=== PATIENT | female | born 1960 | race Caucasian/White ===

== ENCOUNTER 2017-05-05 12:40 | Inpatient (IN) | payer MEDICARE ==
[~2017-05-05] VITALS: Ht 170.2 cm; Wt 56.7 kg
[2017-05-05] MEDS ORDERED: ESTRACE 0.0142.5 GM VG (13:30)
[2017-05-05] MEDS ORDERED: REQUIP0.5 MG PO (13:30)
[2017-05-05] MEDS ORDERED: ORAPRED ODT10 MG/TAB PO (13:31)
[2017-05-05] MEDS ORDERED: XELJANZ5 MG PO (13:32)
[2017-05-05] MEDS ORDERED: IBUPROFEN800 MG PO (13:33)
--- NOTE | 2017-05-05 13:33 | NUR ---
RECEIVED TO ROOM 2239 VIA STRETCHER FROM EMS. ALERT AND ORIENTED. WILL CALL DR RUSSELL FOR ORDERS.
[2017-05-05 13:43] VITALS: BP 105/52; BMI 19.6
[2017-05-05 14:03] LABS: HEMATOCRIT 35.9 % (36.0-48.0); HEMOGLOBIN 11.5 g/dL (12-16); MCH 27.2 pg (26.0-34.0); MCV 84.9 fL (80.0-100.0); MEAN PLATELET VOLUME 10.5 fL (7.4-10.4); PLATELET COUNT 68 10x3/uL (130-400); RBC 4.23 10x6/uL (4.00-5.40); RDW 14.1 % (11.5-14.5)
[2017-05-05 14:14] LABS: ALBUMIN 2.6 g/dL (3.4-5.0); ANION GAP 13.7 mmol/L (8-16); BILIRUBIN - TOTAL 0.58 mg/dL (0.2-1.3); CALCIUM 7.4 mg/dL (8.5-10.1); CARBON DIOXIDE 21.5 mmol/L (21.0-32.0); CREATININE - SERUM 0.9 mg/dL (0.6-1.3); POTASSIUM - SERUM 3.2 mmol/L (3.5-5.1)
[2017-05-05 14:23] LABS: THYROID STIMULATING HORMONE 0.92 uIU/mL (0.36-3.74)
[2017-05-05 14:32] LABS: LYMPHOCYTES 16 % (15-50); MONOCYTES 1 % (2-11); NEUTROPHILS 68 % (40-80); PLATELET ESTIMATE DECREASED
[2017-05-05 15:14] LABS: AMYLASE - SERUM 88 U/L (25-115); LIPASE 242 U/L (73-393)
[2017-05-05 16:10] VITALS: BP 92/57
[2017-05-05 20:00] VITALS: BP 95/59
[2017-05-06] VITALS: BP 99/55
[2017-05-06 03:36] LABS: APPEARANCE CLEAR (CLEAR); BILIRUBIN NEGATIVE (NEGATIVE); COLOR YELLOW (YELLOW); GLUCOSE NEGATIVE (NEGATIVE); KETONE NEGATIVE (NEGATIVE); LEUKOCYTE ESTERASE NEGATIVE (NEGATIVE); NITRITE NEGATIVE (NEGATIVE); PROTEIN NEGATIVE (NEGATIVE); SPECIFIC GRAVITY 1.015 (1.005-1.020); UROBILINOGEN NORMAL (NORMAL)
[2017-05-06 04:00] VITALS: BP 99/58
[2017-05-06 06:40] LABS: BASOPHILS 2.9 % (0-2); EOSINOPHILS 0 % (0-7); HEMATOCRIT 35.6 % (36.0-48.0); HEMOGLOBIN 11.7 g/dL (12-16); MCH 27.5 pg (26.0-34.0); MCHC 32.9 g/dL (31.0-37.0); MCV 83.6 fL (80.0-100.0); MEAN PLATELET VOLUME 11.3 fL (7.4-10.4); MONOCYTES 4.9 % (2-11); NEUTROPHILS 57.2 % (40-80); PLATELET COUNT 56 10x3/uL (130-400); RBC 4.26 10x6/uL (4.00-5.40)
[2017-05-06 06:57] LABS: ALBUMIN 2.3 g/dL (3.4-5.0); ALKALINE PHOSPHATASE 135 U/L (46-116); ALT (SGPT) 79 U/L (10-68); BILIRUBIN - TOTAL 0.67 mg/dL (0.2-1.3); CALC OSMOLALITY 274 mosm/kg (275-300); CALCIUM 7.7 mg/dL (8.5-10.1); CARBON DIOXIDE 20.7 mmol/L (21.0-32.0); CHLORIDE - SERUM 108 mmol/L (98-107); CREATININE - SERUM 0.8 mg/dL (0.6-1.3); GLUCOSE 137 mg/dL (74-106); PROTEIN - SERUM 5.1 g/dL (6.4-8.2); SODIUM 137 mmol/L (136-145); UREA NITROGEN 11 mg/dL (7-18); eGFR NON AFRICAN AMERICAN 78 mL/min (90-120)
[2017-05-06 06:58] LABS: POTASSIUM - SERUM 3.9 mmol/L (3.5-5.1)
--- NOTE | 2017-05-06 08:10 | NUR ---
PT AOX4 RESP EVEN AND NONLABORED PT DENIES NEEDS AT THIS TIME IV TO RIGHT WRIST PATENT AND INTACT AT THIS TIME SRX2 BED AT LOWEST SETTING CALL LIGHT WITHIN REACH WILL CONTINUE TO MONITOR
[2017-05-06 10:08] VITALS: BP 105/66
[2017-05-06 10:22] VITALS: Ht 170.2 cm; Wt 56.7 kg
[2017-05-06 13:13] VITALS: BP 102/64
[2017-05-06 17:37] VITALS: BP 103/63
[2017-05-06 20:00] VITALS: BP 100/56
[2017-05-07 00:35] VITALS: BP 96/59
[2017-05-07 04:00] VITALS: BP 104/64
[2017-05-07 06:00] LABS: BASOPHILS 1.9 % (0-2); EOSINOPHILS 0 % (0-7); HEMATOCRIT 34.9 % (36.0-48.0); HEMOGLOBIN 11.6 g/dL (12-16); IMMATURE GRANULOCYTES 1.1 % (0-5); LYMPHOCYTES 23.6 % (15-50); MCH 27.4 pg (26.0-34.0); MCHC 33.2 g/dL (31.0-37.0); MCV 82.3 fL (80.0-100.0); MEAN PLATELET VOLUME 11.1 fL (7.4-10.4); MONOCYTES 6.6 % (2-11); NEUTROPHILS 66.8 % (40-80); PLATELET COUNT 56 10x3/uL (130-400); RBC 4.24 10x6/uL (4.00-5.40); RDW 14.1 % (11.5-14.5); WBC 6.4 10x3/uL (4.8-10.8)
[2017-05-07 06:14] LABS: ALBUMIN 2.5 g/dL (3.4-5.0); ALKALINE PHOSPHATASE 235 U/L (46-116); ALT (SGPT) 88 U/L (10-68); BILIRUBIN - TOTAL 0.58 mg/dL (0.2-1.3); CALC OSMOLALITY 272 mosm/kg (275-300); CALCIUM 7.8 mg/dL (8.5-10.1); CHLORIDE - SERUM 105 mmol/L (98-107); CREATININE - SERUM 0.8 mg/dL (0.6-1.3); GLUCOSE 110 mg/dL (74-106); POTASSIUM - SERUM 3.7 mmol/L (3.5-5.1); PROTEIN - SERUM 5.2 g/dL (6.4-8.2); SODIUM 137 mmol/L (136-145); eGFR NON AFRICAN AMERICAN 78 mL/min (90-120)
[2017-05-07 06:15] LABS: UREA NITROGEN 8 mg/dL (7-18)
--- NOTE | 2017-05-07 07:00 | NUR ---
PT REC'D FROM [facility]. RESTING IN BED WITH EYES CLOSED. NO SIGNS OF DISTRESS. RESP EVEN AND UNLABORED. BED LOW, CALL LIGHT IN REACH, DENIES NEEDS. CPOC.
[2017-05-07 08:42] VITALS: BP 111/69
--- NOTE | 2017-05-07 09:48 | NUR ---
MORNING MEDS PASSED PER JAN. NO COMPLAINTS OF PAIN. AAOX4. LUNG SOUNDS CLEAR AND EQUAL BILAT. REGULAR HEART RATE AND RHYTHM. PRN MORPHINE OFFERED, BUT PT STATES SHE DOES NOT NEED IT RIGHT NOW. BED LOW, CALL LIGHT IN REACH, DENIES NEEDS. CPOC.
[2017-05-07 11:36] VITALS: BP 100/58
--- NOTE | 2017-05-07 12:11 | NUR ---
DR. ALVA AT BEDSIDE DISCUSSING POC. STATED IT WAS OKAY FOR HER TO BE TAKEN OFF OF ISOLATION AT THIS TIME. PRECAUTION SIGNS REMOVED AND RETURNED.
--- NOTE | 2017-05-07 12:48 | NUR ---
AWAKE AND ALERT.ORIENTED X3. NO C/O AT THIS TIME. REPORTS BEING TIRED THIS AM AND WANTS TO WAIT TO EAT FOR A BIT. WILL MONITOR. DENIES NEEDS.
[2017-05-07 17:30] VITALS: BP 111/62
--- NOTE | 2017-05-07 19:40 | NUR ---
RECIEVED SHIFT REPORT. PT IS LYING IN BED. ALERT AND ORIENTED AND ABLE TO VERBALIZE NEEDS. IV IS PATENT AND FLUIDS ARE RUNNING PER ORDER. PT IS AMBULATORY BUT WAS INSTRUCTED TO CALL FOR ANY ASSISTANCE NEEDED. PT DENIES ANY PAIN AT THIS TIME. PT REFUSES SCD'S. NO NEEDS ARE VERBALIZED AT THIS TIME. WILL CONTINUE TO MONITOR. SIDE RAILS ARE UP X 2. BED IS IN LOWEST POSITION. CALL LIGHT IS WITHIN REACH.
[2017-05-07 20:00] VITALS: BP 103/68
--- NOTE | 2017-05-07 20:53 | NUR ---
SHIFT ASSESSMENT COMPLETED. NIGHT MEDS GIVEN WITH NO PROBLEMS. NO NEEDS ARE VOICED. VISITOR IS AT THE BEDSIDE. WILL MONITOR. SIDE RAILS X 2. BED LOW. CALL LIGHT IN REACH.
[2017-05-08 04:00] VITALS: BP 94/59
[2017-05-08 05:22] LABS: BASOPHILS 0.7 % (0-2); EOSINOPHILS 0 % (0-7); HEMATOCRIT 35.3 % (36.0-48.0); HEMOGLOBIN 11.8 g/dL (12-16); IMMATURE GRANULOCYTES 6.1 % (0-5); LYMPHOCYTES 37.7 % (15-50); MCH 27.7 pg (26.0-34.0); MCHC 33.4 g/dL (31.0-37.0); MCV 82.9 fL (80.0-100.0); MEAN PLATELET VOLUME 11.9 fL (7.4-10.4); MONOCYTES 3.6 % (2-11); NEUTROPHILS 51.9 % (40-80); PLATELET COUNT 59 10x3/uL (130-400); RBC 4.26 10x6/uL (4.00-5.40); RDW 14.3 % (11.5-14.5); WBC 7.2 10x3/uL (4.8-10.8)
[2017-05-08 05:34] LABS: INR 0.95 (0.85-1.17); PROTIME 12.5 SECONDS (11.6-15.0)
[2017-05-08 05:35] LABS: APTT 31.8 SECONDS (22.8-39.4)
[2017-05-08 05:41] LABS: ALBUMIN 2.4 g/dL (3.4-5.0); ALKALINE PHOSPHATASE 238 U/L (46-116); BILIRUBIN - TOTAL 0.46 mg/dL (0.2-1.3); CALCIUM 7.8 mg/dL (8.5-10.1); CARBON DIOXIDE 25.3 mmol/L (21.0-32.0); CHLORIDE - SERUM 105 mmol/L (98-107); CREATININE - SERUM 0.7 mg/dL (0.6-1.3); GLUCOSE 110 mg/dL (74-106); POTASSIUM - SERUM 3.7 mmol/L (3.5-5.1); PROTEIN - SERUM 5.2 g/dL (6.4-8.2); SODIUM 138 mmol/L (136-145); eGFR NON AFRICAN AMERICAN > 90 mL/min (90-120)
[2017-05-08 05:42] LABS: ALT (SGPT) 122 U/L (10-68); CALC OSMOLALITY 275 mosm/kg (275-300); UREA NITROGEN 11 mg/dL (7-18)
--- NOTE | 2017-05-08 07:00 | NUR ---
PT REC'D FROM [facility]. RESTING IN BED WATCHING TV. AAXO4. NO COMPLAINTS OF PAIN. PIV TO R WRIST FREE OF REDNESS AND SWELLING. PT STATES, "I'M FEELING MUCH BETTER TODAY!" BED LOW, CALL LIGHT IN REACH, DENIES NEEDS. CPOC.
[2017-05-08 07:10] VITALS: BP 92/57
--- NOTE | 2017-05-08 11:00 | NUR ---
IV DISCONNECTED AT THIS TIME SO THAT PT CAN SHOWER.
[2017-05-08 12:04] VITALS: BP 86/55
--- NOTE | 2017-05-08 14:07 | NUR ---
DR. RUSSELL ON PHONE. UPDATE PROVIDED. PT UP AMBULATING THROUGH [facility]ALL[facility].
--- NOTE | 2017-05-08 15:20 | NUR ---
IV TO R WRIST RED, WARM, AND SWOLLEN. DC'D WITH CATHETER INTACT. X2 ATTEMPTS WITH 20GUAGE IV CATH. BOTH UNSUCCESSFUL. WILL HAVE SOMEONE ELSE ATTEMPT.
[2017-05-08 15:54] VITALS: BP 101/60
--- NOTE | 2017-05-08 18:42 | NUR ---
PT SEEN FOR [employer] HELPER NOTE. NO COMPLAINTS AT PRESENT. STATES FEELS ALITTLE BETTER TODAY. CALL LIGHT IN REACH
--- NOTE | 2017-05-08 19:35 | NUR ---
RECIEVED SHIFT REPORT. PT IS LYING IN BED. ALERT AND ORIENTED AND ABLE TO VERBALIZE NEEDS. IV IS PATENT AND FLUIDS ARE RUNNING PER ORDER. PT IS AMBULATORY BUT WAS INSTRUCTED TO CALL FOR ANY ASSISTANCE NEEDED. PT REFUSES SCD'S. PT DENIES ANY PAIN AT THIS TIME. NO NEEDS ARE VERBALIZED AT THIS TIME. WILL CONTINUE TO MONITOR. SIDE RAILS ARE UP X 2. BED IS IN LOWEST POSITION. CALL LIGHT IS WITHIN REACH.
[2017-05-08 20:00] VITALS: BP 95/56
--- NOTE | 2017-05-08 20:54 | NUR ---
SHIFT ASSESSMENT COMPLETED. NIGHT MEDS GIVEN WITH NO PROBLEMS. NO NEEDS ARE VOICED. WILL MONITOR. SIDE RAILS X 2. BED LOW. CALL LIGHT IN REACH.
[2017-05-09 06:50] LABS: BASOPHILS 0.6 % (0-2); EOSINOPHILS 0.1 % (0-7); HEMATOCRIT 36.4 % (36.0-48.0); HEMOGLOBIN 11.8 g/dL (12-16); IMMATURE GRANULOCYTES 1.3 % (0-5); LYMPHOCYTES 42.3 % (15-50); MCH 27.1 pg (26.0-34.0); MCHC 32.4 g/dL (31.0-37.0); MCV 83.5 fL (80.0-100.0); MEAN PLATELET VOLUME 11.8 fL (7.4-10.4); NEUTROPHILS 44.7 % (40-80); RBC 4.36 10x6/uL (4.00-5.40); RDW 14.7 % (11.5-14.5); WBC 6.9 10x3/uL (4.8-10.8)
[2017-05-09 06:53] LABS: PLATELET COUNT 72 10x3/uL (130-400)
--- NOTE | 2017-05-09 07:00 | NUR ---
PT REC'D FROM [facility]. RESTING IN BED WATCHING TV. AAOX4. NO COMPLAINTS OF PAIN. PIV TO L WRIST FREE OF REDNESS AND SWELLING. LABS REVIEWED WITH PT. BED LOW, CALL LIGHT IN REACH, DENIES NEEDS. CPOC.
[2017-05-09 07:09] LABS: ALBUMIN 2.4 g/dL (3.4-5.0); ALKALINE PHOSPHATASE 236 U/L (46-116); CALC OSMOLALITY 276 mosm/kg (275-300); CALCIUM 7.7 mg/dL (8.5-10.1); CARBON DIOXIDE 25.6 mmol/L (21.0-32.0); CHLORIDE - SERUM 106 mmol/L (98-107); CREATININE - SERUM 0.8 mg/dL (0.6-1.3); GLUCOSE 90 mg/dL (74-106); POTASSIUM - SERUM 3.8 mmol/L (3.5-5.1); PROTEIN - SERUM 5.4 g/dL (6.4-8.2); SODIUM 139 mmol/L (136-145); UREA NITROGEN 10 mg/dL (7-18); eGFR NON AFRICAN AMERICAN 78 mL/min (90-120)
[2017-05-09 07:10] LABS: ALT (SGPT) 201 U/L (10-68)
[2017-05-09 08:21] VITALS: BP 106/67
--- NOTE | 2017-05-09 09:55 | NUR ---
MORNING MEDS PASSED AT THIS TIME. NO COMPLAINTS. ASKING ABOUT DC. STATED THAT ONCE DR. RIVERS ROUNDED WE WOULD KNOW FOR SURE. NO QUESTIONS OR CONCERNS AT THIS TIME. BED LOW, CALL LIGHT IN REACH, DENIES NEEDS. CPOC.
--- NOTE | 2017-05-09 09:56 | NUR ---
Patient Name: EMILY GONZALEZ Admission Status: Elective Accout number: [id number] Admission Date: 05-05-2017 : 1960 Admission Diagnosis: Attending: VICTORIA Current LOS: 4 Anticipated DC Date: 05-11-2017 Planned Disposition: Home Primary Insurance: [facility] Discharge Planning Comments: CM MET WITH PATIENT REGARDING D/C NEEDS AND PLANS. PATIENT STATED SHE LIVES WITH HER SPOUSE (LALIT) AND HE WILL DRIVE HER HOME AT DISCHARGE. PATIENT HAS 5 STEPS W/RAILS TO ENTER HOME AND HAS A STAIRCASE W/RAILS IN THE HOME WHICH SHE DOES NOT HAVE TO USE. PATIENT IS INDEPENDENT WITH HER CARE AND HAS NO DME AT HOME. PATIENTS PCP IS DR. RUSSELL AND USES [facility] [address] FOR HER PHARMACY. PATIENT DOES NOT WANT HOME HEALTH AT DISCHARGE. CM WILL CONTINUE TO FOLLOW PATIENT WITH D/C NEEDS AND PLANS. PCP DR. DREW HIGHTOWER ON [address]- [phone] LALIT (SPOUSE) [phone] Academic Affairs Director: Kaylee Ayers Is the patient Alert and Oriented? Yes 0 * How many steps to enter\exit or inside your home? 5 STEPS 0 * PCP DR. RUSSELL 0 * [facility] [address] [facility] * Preadmission Environment Home with Family 0 * ADLs Independent 0 * Equipment None 0 * List name and contact numbers for known caregivers / representatives who currently or will assist patient after discharge: LALIT (SPOUSE) [phone] 0 * Community resources currently utilized None 0 * Additional services required to return to the preadmission environment? Yes 0 * Can the patient safely return to the preadmission environment? Yes 0 * Has this patient been hospitalized within the prior 30 days at any hospital? No 0 Grand Total: 0
--- NOTE | 2017-05-09 11:26 | NUR ---
SHIRT CLEANER NOTE-NO COMPLAINTS AT PRESENT. NO FEVER X 24 HOURS AND WBC CONTINUE TO REMAIN STABLE. PROCALAMINE INFUSING ALONG WITH IV FLUIDS. WANTS TO GO HOME SOON. CALL LIGHT IN PLACE
[2017-05-09 13:01] VITALS: BP 104/74
[2017-05-09] MEDS ORDERED: FLUTICASONE PRO16 GM NASAL (13:41)
[2017-05-09] MEDS ORDERED: FLORAJEN3 CAPS460 MG PO (13:42)
[2017-05-09] MEDS ORDERED: DOXYCYCLINE HY100 M2 PO (13:44)
--- NOTE | 2017-05-09 13:46 | NUR ---
CM REASSESSMENT NOTE: PATIENT IS DISCHARGING HOME TODAY-DAUGHTER IS DRIVING HER. PATIENT HAD NO NEEDS FOR DISCHARGE AND REFUSED HOME HEALTH.
--- NOTE | 2017-05-09 14:32 | NUR ---
DC INSTRUCTIONS DISCUSSED WITH PT AT THIS TIME. NO QUESTIONS OR CONCERNS VOICED. IV TO L WRIST DC'D WITH CATHETER INTACT. PRESSURE AND DRESSING APPLIED. ESCORTED OUT VIA WC.
--- NOTE | 2017-05-09 14:34 | NUR ---
PT REC'D FROM [facility]. RESTING IN BED WATCHING TV. AAOX4. NO COMPLAINTS OF PAIN. PIV TO L WRIST FREE OF REDNESS AND SWELLING. BED LOW, CALL LIGHT IN REACH, DENIES NEEDS. CPOC.
[2017-05-11 14:27] LABS: EHRLICHIA CHAFF IGG Negative (Neg:<1:64); EHRLICHIA CHAFF IGM Negative (Neg:<1:20); HGE IGG TITER Negative (Neg:<1:64); HGE IGM TITER Negative (Neg:<1:20)
[2017-05-11 21:08] LABS: RMSF IGM 0.28 index (0.00-0.89)
== END 2017-05-09 14:39 | disposition home or self-care (01) | DRG 813 ==
LOC: D.MS 12:40
PROVIDERS: Family Medicine Adult Medicine; Internal Medicine Hematology & Oncology; Student in an Organized Health Care Education/Training Program; ADMIT Family Medicine
DX: D69.6 Thrombocytopenia, unspecified (principal); A77.40 Ehrlichiosis, unspecified; D70.9 Neutropenia, unspecified; R50.81 Fever presenting with conditions classified elsewhere; M06.9 Rheumatoid arthritis, unspecified; N26.1 Atrophy of kidney (terminal); G25.81 Restless legs syndrome; R09.82 Postnasal drip

== ENCOUNTER 2017-09-01 09:00 | Outpatient (CLI) | payer MEDICARE ==
[2017-05-06 10:22] VITALS: BMI 19.5
[~2017-09-01 09:00] MED LIST: DOXYCYCLINE HY100 M2 PO; ESTRACE 0.0142.5 GM VG; FLORAJEN3 CAPS460 MG PO; FLUTICASONE PRO16 GM NASAL; IBUPROFEN800 MG PO; ORAPRED ODT10 MG/TAB PO; REQUIP0.5 MG PO; XELJANZ5 MG PO
== END 2017-09-01 23:59 | disposition home or self-care (01) ==
LOC: D.MAMMO 09:00
DX: Z12.31 Encounter for screening mammogram for malignant neoplasm of breast (principal)

== ENCOUNTER 2018-12-31 08:00 | Outpatient (CLI) | payer MEDICARE ==
[2017-05-06 10:22] VITALS: BMI 19.5
== END 2018-12-31 09:00 | disposition home or self-care (01) ==
LOC: D.MAMMO 08:00
DX: R92.8 Other abnormal and inconclusive findings on diagnostic imaging of breast (principal)

== ENCOUNTER 2020-03-22 10:40 | Emergency (ER) | payer MEDICARE ==
[~2020-03-22] VITALS: Ht 170.2 cm; Wt 50.0 kg
[2020-03-22 10:51] VITALS: Ht 170.2 cm; Wt 50.0 kg
[2020-03-22 11:45] LABS: BASOPHILS 0.2 % (0-2); HEMATOCRIT 38.3 % (36.0-48.0); HEMOGLOBIN 12.2 g/dL (12-16); IMMATURE GRANULOCYTES 0.2 % (0-5); LYMPHOCYTES 24.7 % (15-50); MCH 29.4 pg (26.0-34.0); MCHC 31.9 g/dL (31.0-37.0); MCV 92.3 fL (80.0-100.0); MEAN PLATELET VOLUME 9.1 fL (7.4-10.4); MONOCYTES 13.5 % (2-11); NEUTROPHILS 60.4 % (40-80); RBC 4.15 10x6/uL (4.00-5.40); RDW 15.4 % (11.5-14.5); WBC 5.9 10x3/uL (4.8-10.8)
[2020-03-22 11:49] LABS: PLATELET COUNT 272 10x3/uL (130-400)
[2020-03-22 11:58] LABS: CALC OSMOLALITY 279 mosm/kg (275-300); CALCIUM 8.6 mg/dL (8.5-10.1); CARBON DIOXIDE 28.5 mmol/L (21.0-32.0); CHLORIDE - SERUM 104 mmol/L (98-107); CREATININE - SERUM 0.8 mg/dL (0.6-1.3); GLUCOSE 83 mg/dL (74-106); POTASSIUM - SERUM 3.8 mmol/L (3.5-5.1); SODIUM 140 mmol/L (136-145); UREA NITROGEN 18 mg/dL (7-18); eGFR NON AFRICAN AMERICAN 77 mL/min (90-120)
[2020-03-22 12:04] LABS: ALBUMIN 3.6 g/dL (3.4-5.0); ALKALINE PHOSPHATASE 67 U/L (30-120); ALT (SGPT) 21 U/L (10-68); BILIRUBIN - TOTAL 0.41 mg/dL (0.2-1.3); PROTEIN - SERUM 6.4 g/dL (6.4-8.2)
[2020-03-22 12:58] LABS: BILIRUBIN NEGATIVE (NEGATIVE); GLUCOSE NEGATIVE (NEGATIVE); KETONE NEGATIVE (NEGATIVE); NITRITE NEGATIVE (NEGATIVE); UROBILINOGEN NORMAL (NORMAL)
[2020-03-22 13:00] LABS: BACTERIA FEW /hpf (NEGATIVE); RED CELLS - URINE 0-5 /hpf (0-5); WHITE CELLS - URINE OCC /hpf (NEGATIVE)
[2020-03-22] MEDS ORDERED: PREDNISONE20 MG PO (13:14)
[2020-03-22 13:22] VITALS: BP 132/74
== END 2020-03-22 13:23 | disposition home or self-care (01) ==
LOC: D.ER 10:40
PROVIDERS: Family Medicine
DX: R10.9 Unspecified abdominal pain (principal); M54.5 Low back pain; R91.1 Solitary pulmonary nodule

== ENCOUNTER 2020-05-21 08:43 | Observation (INO) | payer MEDICARE ==
[~2020-05-21] VITALS: Ht 170.2 cm; Wt 52.2 kg
[~2020-05-21 08:43] MED LIST changes: +PREDNISONE20 MG PO
[2020-05-21] MEDS ORDERED: [UNRECOGNIZED DRUG - OTHER] PO (09:03)
[2020-05-21] MEDS ORDERED: METHYLTREXATE PO (09:04)
[2020-05-21] MEDS ORDERED: VALTREX1000 MG PO (09:04)
[2020-05-21] MEDS ORDERED: FOLIC ACID1 MG PO (09:05)
[2020-05-21 09:26] LABS: CALC OSMOLALITY 276 mosm/kg (275-300); CALCIUM 8.9 mg/dL (8.5-10.1); CARBON DIOXIDE 30.1 mmol/L (21.0-32.0); CHLORIDE - SERUM 102 mmol/L (98-107); CREATININE - SERUM 0.9 mg/dL (0.6-1.3); GLUCOSE 98 mg/dL (74-106); POTASSIUM - SERUM 3.7 mmol/L (3.5-5.1); SODIUM 138 mmol/L (136-145); UREA NITROGEN 15 mg/dL (7-18); eGFR NON AFRICAN AMERICAN 68 mL/min (90-120)
[2020-05-21 09:35] LABS: ALBUMIN 3.3 g/dL (3.4-5.0); ALKALINE PHOSPHATASE 78 U/L (30-120); ALT (SGPT) 18 U/L (10-68); AMYLASE - SERUM 47 U/L (25-115); BILIRUBIN - TOTAL 0.34 mg/dL (0.2-1.3); LIPASE 117 U/L (73-393); PROTEIN - SERUM 6.9 g/dL (6.4-8.2); TROPONIN-I < 0.017 ng/mL (0.000-0.060)
[2020-05-21 09:36] LABS: BASOPHILS 1.1 % (0-2); EOSINOPHILS 1.4 % (0-7); HEMOGLOBIN 12.4 g/dL (12-16); IMMATURE GRANULOCYTES 0.3 % (0-5); LYMPHOCYTES 20.7 % (15-50); MCHC 32.6 g/dL (31.0-37.0); MCV 91.8 fL (80.0-100.0); MEAN PLATELET VOLUME 9.5 fL (7.4-10.4); MONOCYTES 19.3 % (2-11); NEUTROPHILS 57.2 % (40-80); PLATELET COUNT 235 10x3/uL (130-400); RBC 4.14 10x6/uL (4.00-5.40); RDW 14.8 % (11.5-14.5); WBC 3.7 10x3/uL (4.8-10.8)
[2020-05-21 09:43] VITALS: BP 131/81
--- NOTE | 2020-05-21 10:01 | NUR ---
URINE COLLECTED AND SENT TO LAB VIA TUBE SYSTEM.
[2020-05-21 10:26] LABS: AMORPHOUS SEDIMENT <1+ /lpf (NONE SEEN); BACTERIA MODERATE /hpf (NEGATIVE); BILIRUBIN NEGATIVE (NEGATIVE); EPITHELIAL CELLS 0-5 /hpf (0-5); GLUCOSE NEGATIVE (NEGATIVE); KETONE NEGATIVE (NEGATIVE); NITRITE NEGATIVE (NEGATIVE); RED CELLS - URINE RARE /hpf (0-5); SPECIFIC GRAVITY 1.015 (1.005-1.020); UROBILINOGEN NORMAL (NORMAL)
[2020-05-21 10:45] VITALS: BP 120/75
[2020-05-21 11:53] VITALS: BP 111/67
[2020-05-21 13:51] VITALS: BP 118/71
[2020-05-21 14:21] VITALS: BP 124/77; BMI 18.0
--- NOTE | 2020-05-21 14:45 | NUR ---
RECEIVED PT FROM ER. PT IS AAO AND UP AD PITO. RR EVEN AND UNLABORED ON RA. VSS AND WNL. L.FOR PIV NS INFUSING @125ML/HR AND ZOFRAN @4.7ML/HR. QUICKSTART, HISTORY, MED REQ, AND ASSESSMENT COMPLETE. DAUGHTER AT BEDSIDE. PT DENIES ANY NEEDS AT THIS TIME. WILL CTM.
[2020-05-21 17:29] LABS: APTT 27.9 SECONDS (22.8-39.4); INR 0.93 (0.85-1.17); PROTIME 12.4 SECONDS (11.6-15.0)
--- NOTE | 2020-05-21 19:20 | NUR ---
PT IN BED, AAO X 3, RESP EVEN AND UNLABORED. NO DISTRESS NOTED, CL IN REACH, SR UP X 2.
[2020-05-22] VITALS: BP 119/77
[2020-05-22 05:29] VITALS: BP 133/86
[2020-05-22 05:59] LABS: HEMATOCRIT 37.1 % (36.0-48.0); HEMOGLOBIN 11.7 g/dL (12-16); MCH 29.3 pg (26.0-34.0); MCHC 31.5 g/dL (31.0-37.0); MCV 92.8 fL (80.0-100.0); MEAN PLATELET VOLUME 9.2 fL (7.4-10.4); PLATELET COUNT 265 10x3/uL (130-400); RDW 14.8 % (11.5-14.5); WBC 2.8 10x3/uL (4.8-10.8)
[2020-05-22 06:13] LABS: ALBUMIN 2.8 g/dL (3.4-5.0); ANION GAP 10.1 mmol/L (8-16); BILIRUBIN - TOTAL 0.29 mg/dL (0.2-1.3); CALCIUM 8.1 mg/dL (8.5-10.1); CREATININE - SERUM 0.9 mg/dL (0.6-1.3); POTASSIUM - SERUM 4.1 mmol/L (3.5-5.1); PROTEIN - SERUM 5.9 g/dL (6.4-8.2)
[2020-05-22 06:43] LABS: LYMPHOCYTES 23 % (15-50); MONOCYTES 2 % (2-11); NEUTROPHILS 74 % (40-80); PLATELET ESTIMATE NORMAL
[2020-05-22 08:41] VITALS: BP 142/93
--- NOTE | 2020-05-22 11:11 | NUR ---
PATIENT IS IN AIRBORNE ISOLATION FOR SHINGLES TO RIGHT SIDE OF FACE/EYE. ON GABERPENTIN FOR PAIN AND VALTREX. STATES THAT SHE HAD VALTREX AT HOME AND HAD NOT STARTED THEM YET. LEFT FA WITH NS INFUSING AT 125 CC/HR. ON ROOM AIR. ZOFRAN GTT INFUSING AT 4.7 CC/HR, DENIES ANY NAUSEA. ON EP, LABS ARE WNL. WANTS TO GO HOME. ON REGULAR DIET.
[2020-05-22 13:54] VITALS: Ht 170.2 cm; Wt 52.2 kg
[2020-05-22 14:39] VITALS: BP 140/82
--- NOTE | 2020-05-22 15:04 | NUR ---
AFTERNOON MEDS GIVEN WITH WATER. DENIES ANY NEEDS AT THIS TIME.
[2020-05-22] MEDS ORDERED: OMNICEF300 MG PO (15:15)
--- NOTE | 2020-05-22 17:20 | NUR ---
DISCHARGE PAPERWORK SIGNED, ALL QUESTIONS ANSWERED. IV TO LEFT FOREARM DC'D, TIP INTACT. PT REQUESTED TO AMBULATE OUT.
== END 2020-05-22 17:21 | disposition home or self-care (01) ==
LOC: D.ER 08:43 → D.M2 13:19 → OBSVTIME 13:19 → D.M2 05-22 17:21
PROVIDERS: Family Medicine; ADMIT Family Medicine; ATTEND Family Medicine
DX: B02.9 Zoster without complications (principal); N39.0 Urinary tract infection, site not specified; M06.9 Rheumatoid arthritis, unspecified; M19.90 Unspecified osteoarthritis, unspecified site; F32.9 Major depressive disorder, single episode, unspecified; D72.819 Decreased white blood cell count, unspecified; G25.81 Restless legs syndrome; R91.1 Solitary pulmonary nodule; R53.81 Other malaise; R53.83 Other fatigue